=== PATIENT | male | born 1995 | race Caucasian/White ===

== ENCOUNTER → 2024-03-23 06:23 | Day surgery (SDC) | payer OTHER, SELFPAY | LOC: GI 06:23 | PROVIDERS: ATTENDING PHYSICIAN Internal Medicine Gastroenterology | DX: K51.919 Ulcerative colitis, unspecified with unspecified complications (principal); K52.9 Noninfective gastroenteritis and colitis, unspecified | CPT/HCPCS: 45380; 88305 ==

== ENCOUNTER → 2024-03-28 09:38 | Outpatient (REF) | payer OTHER, SELFPAY | LOC: RAD 09:38 | PROVIDERS: ATTENDING PHYSICIAN Internal Medicine Gastroenterology; FAMILY PHYSICIAN Family Medicine | DX: R13.19 Other dysphagia (principal) | CPT/HCPCS: 74221 ==

== ENCOUNTER 2024-06-15 16:07 | Emergency (ER) | payer OTHER, SELFPAY ==
[2024-06-15 16:19] VITALS: BP 139/92
--- NOTE | 2024-06-15 17:58 | ED.GENMED ---
History of Present Illness
General
Chief Complaint: Crisis Evaluation
Source: patient
Exam Limitations: none
Time Seen by Provider: 06/15/24 17:17
Nursing documentation reviewed up to this point in time: agreed with
History of Present Illness
History of Present Illness:
Patient to ED requesting to speak with crisis. States he had an argument with his mother and was advised by his [facility] therapist to come to the ED to speak with crisis. He declines to discuss this with me. He offers no other complaints
Past History
Past History
ED Past Medical History: Psychiatric (Autism like syndrome)
Social History
Tobacco: Non-smoker
Alcohol: None
Personal: Single
Living: with family
Employment: Employed
Review of Systems
Review of Systems
Allergies reviewed?: Yes
All Other Systems: ROS reviewed and negative except as documented in HPI and ROS
Constitutional: Reports no symptoms
EENT: Reports no symptoms
Respiratory: Reports no symptoms
Cardiac: Reports no symptoms
ABD/GI: Reports no symptoms
: Reports no symptoms
Musculoskeletal: Reports no symptoms
Skin: Reports no symptoms
Neurological: Reports no symptoms
Psychiatric: Reports anxiety
Phy Exam
General Physical Exam
General Presentation: well appearing and no apparent distress
General Skin: warm and dry
General Habitus: normal
General Mental: alert
General Hydration: appears well hydrated
Musculoskeletal Exam
Musculoskeletal Exam: full ROM and neuro vasc intact
Skin Exam
Skin Exam: normal color and warm/dry
Psychiatric Exam
Psychiatric Exam: agitated and anxious
Course
Orders/Labs/Results
Orders:
Orders
06/15/24 16:27
Crisis Consult Urgent
Reason for Consult: anxiety
Vital Signs
Initial and Last Documented VS:
Initial Vital Signs
Temp Pulse Resp BP Pulse Ox
98.3 F 80 18 139/92 99
06/15/24 16:19 06/15/24 16:19 06/15/24 16:19 06/15/24 16:19 06/15/24 16:19
Last Documented Vital Signs
Temp Pulse Resp BP Pulse Ox
98.3 F 80 18 139/92 99
06/15/24 16:19 06/15/24 16:19 06/15/24 16:19 06/15/24 16:19 06/15/24 16:19
Update Note
Update Note:
Patient states he spoke with show worker but wants to talk to her supervisor publications. He was escorted by RN to crisis department. Speaking to me calmly, non-threatening, however does not want to discuss anything further with ED staff. Will only speak
with crisis.
ED Attending Note
-
Portions of this chart may have been created with voice recognition software.� Occasional wrong word or��sound alike� substitutions may have occurred due to the inherent limitations of voice recognition software.
Discharge Plan
Departure
Patient Disposition: Home (Routine Discharge)
Date of Disposition: 06/15/24
Time of Disposition: 17:58
Patient with high blood pressure during this ER visit?: No
Condition: Good
Covid-19: Not Applicable
Discharge Problem:
Anxiety
Instructions: Anxiety, Adult (DC)
Referrals:
UNKNOWN - PT NOT,INTERVIEWE [Family Provider] -
Interventions
Interventions:
*Risk Screen - Suicide Last Done: 06/15/24 16:19
*General Assessment Last Done: 06/15/24 16:19
*Neglect/Abuse Screening Last Done: 06/15/24 16:19
ED- Fall Risk Assessment Last Done: 06/15/24 16:44
*ED COVID-19 Vaccine History Last Done: 06/15/24 16:19
ED-Psychological Assessment Last Done: 06/15/24 16:42
Discharge Date and Time
Print Language: MONEGASQUE
== END 2024-06-15 18:15 | disposition home or self-care (01) ==
LOC: EMR 16:07
PROVIDERS: EMERGENCY PHYSICIAN Emergency Medicine
DX: F41.9 Anxiety disorder, unspecified (principal); F84.0 Autistic disorder
CPT/HCPCS: 99283

== ENCOUNTER 2025-02-07 16:49 | Emergency (ER) | payer OTHER, SELFPAY ==
[2025-02-07 16:58] VITALS: BP 145/93
--- NOTE | 2025-02-07 17:41 | ED.GENMED ---
History of Present Illness
General
Chief Complaint: Crisis Evaluation
Source: patient
Time Seen by Provider: 02/07/25 17:29
History of Present Illness
History of Present Illness:
29-year-old male with past medical history of autism presenting to the ER for evaluation with crisis after he got into an argument with mom earlier this afternoon, wanted to speak to crisis about his 'current situation'. Patient reportedly felt as
if he wanted to harm himself after the argument but states he no longer feels this way and feels much better. Patient is without any physical concerns at this time. History of similar and follows with [facility] as an outpatient. Presently
denies any SI, HI, hallucinations, substance abuse.
Past History
Past History
ED Past Medical History: Psychiatric (Autism like syndrome) and Other (Ulcerative colitis)
ED Past Surgical History: None
Social History
Tobacco: Non-smoker
Alcohol: None
Drug: None
Personal: Single
Living: with family
Employment: Employed
Review of Systems
Review of Systems
All Other Systems: ROS reviewed and negative except as documented in HPI and ROS
Phy Exam
Physical Exam
Physical Exam:
GENERAL: Alert , in no apparent distress but does have an anxious affect
EYE: conjunctiva clear
Head: Normocephalic atraumatic
NECK: Supple,
ENT: mmm.
LUNGS: no acute respiratory distress
NEUROLOGICAL: Alert and oriented
SKIN: Warm and dry, skin intact.
MUSCULOSKELETAL: well perfused.
PSYCH: Normal and appropriate interaction.
Scores
Heart Failure Risk
Heart Failure Risk Score: Not Applicable
Heart Score for Chest Pain Patients
STEMI patient?: Not applicable
Withdrawal Assessment of Alcohol
Withdrawal Assessment Completed?: Not applicable
Course
Orders/Labs/Results
Orders:
Orders
02/07/25 17:01
Crisis Consult Urgent
Reason for Consult: fight with mom
Vital Signs
Initial and Last Documented VS:
Initial Vital Signs
Temp Pulse Resp BP Pulse Ox
98.0 F 84 16 145/93 96
02/07/25 16:58 02/07/25 16:58 02/07/25 16:58 02/07/25 16:58 02/07/25 16:58
Last Documented Vital Signs
Temp Pulse Resp BP Pulse Ox
98.0 F 84 16 145/93 96
02/07/25 16:58 02/07/25 16:58 02/07/25 16:58 02/07/25 16:58 02/07/25 17:43
MDM/Problems Addressed
Differential Diagnosis Includes:
Adjustment disorder
Anxiety
Depression
MDM/Problems Addressed:
29-year-old male presenting to the ER for evaluation after becoming upset following an argument with mother. Initially felt as if he wanted to harm himself but denies SI. Patient feels much better currently. Will have patient seen by crisis.
Disposition pending their evaluation.
Chronic conditions affecting care: Psychiatric illness
*Pulse Oximetry
SaO2: 96
Oxygen Mode of Delivery: Room air
Patient hypoxic: no
*Critical Care Note
Total Time (30-74mins, 75-104mins- exclusive of procedures): Not Applicable
Patient Management
Escalation/DeEscalation of care consider admission/obs:
Patient seen by crisis. Stable for discharge home. Mother is going to pick the patient up from the emergency department and take him home. Patient is happy with this plan. He already has arranged outpatient follow-up in the coming week.
ED Attending Note
-
Portions of this chart may have been created with voice recognition software.� Occasional wrong word or��sound alike� substitutions may have occurred due to the inherent limitations of voice recognition software.
Discharge Plan
Departure
Patient Disposition: Home (Routine Discharge)
Date of Disposition: 02/07/25
Time of Disposition: 18:03
Patient with high blood pressure during this ER visit?: Yes
Discharge Problem:
Adjustment disorder
Instructions: Anxiety, Adult (DC)
Referrals:
UNKNOWN - PT NOT,INTERVIEWE [Family Provider]
Interventions
Interventions:
*Risk Screen - Suicide Last Done: 02/07/25 16:58
*General Assessment Last Done: 02/07/25 18:06
*Neglect/Abuse Screening Last Done: 02/07/25 16:58
*ED- Fall Risk Assessment Last Done: 02/07/25 18:06
*ED COVID-19 Vaccine History Last Done: 02/07/25 18:06
*Nursing Disposition Last Done: 02/07/25 18:06
ED-Psychological Assessment Last Done: 02/07/25 17:05
Discharge Date and Time
Discharge Date/Time: 02/07/25 18:07
Print Language: LATVIAN
--- NOTE | 2025-02-07 17:44 | EDRN ---
caseworker protective services w/ pt at this time.
== END 2025-02-07 18:07 | disposition home or self-care (01) ==
LOC: EMR 16:49
PROVIDERS: EMERGENCY PHYSICIAN Emergency Medicine
DX: F43.20 Adjustment disorder, unspecified (principal); F84.0 Autistic disorder; K51.90 Ulcerative colitis, unspecified, without complications
CPT/HCPCS: 99283